=== PATIENT | female | born 1955 | race Caucasian/White ===

== ENCOUNTER 2017-08-12 09:22 | Day surgery (SDC) | payer OTHER ==
[~2017-08-12] VITALS: Ht 177.8 cm; Wt 63.7 kg
[~2017-08-12 09:22] MED LIST: AMLO5 PO; ASPI81EC PO; HYDCHL25 PO; LOSA25 PO; LOSA50 PO; MULTI VITAMIN1 EACH PO; MULVITA PO; OMEGA-3 PO; SIMV10 PO; TRAZ100 PO; [UNRECOGNIZED DRUG - OTHER] PO
== END 2017-08-12 11:35 | disposition home or self-care (01) ==
LOC: ORSCSDS 09:22
PROVIDERS: Internal Medicine Gastroenterology
PROC: 0DBM8ZX Excision of Descending Colon, Via Natural or Artificial Opening Endoscopic, Diagnostic (ICD-10-PCS; principal; 2017-08-12 10:45)
PROC: 0DBH8ZX Excision of Cecum, Via Natural or Artificial Opening Endoscopic, Diagnostic (ICD-10-PCS; principal; 2017-08-12 10:45)
PROC: 0DBN8ZX Excision of Sigmoid Colon, Via Natural or Artificial Opening Endoscopic, Diagnostic (ICD-10-PCS; principal; 2017-08-12 10:45)
DX: Z12.11 Encounter for screening for malignant neoplasm of colon (principal); D12.0 Benign neoplasm of cecum; D12.4 Benign neoplasm of descending colon; K63.5 Polyp of colon; K57.30 Diverticulosis of large intestine without perforation or abscess without bleeding; Z86.010 Personal history of colon polyps; Z80.0 Family history of malignant neoplasm of digestive organs; I10 Essential (primary) hypertension; E78.5 Hyperlipidemia, unspecified; Z79.899 Other long term (current) drug therapy
CPT/HCPCS: J1980

== ENCOUNTER 2020-08-22 11:55 | Day surgery (SDC) | payer OTHER ==
[~2020-08-22] VITALS: Ht 175.3 cm; Wt 64.5 kg
[~2020-08-22 11:55] MED LIST changes: +METO50ER PO; +OLME20 PO; +ZOCOR20 MG PO
[2020-08-22] MEDS ORDERED: Vitamin D2000 UNIT (12:27)
--- NOTE | 2020-08-22 12:36 | NUR ---
08/22/20 1236 Lourdes Anderson FIRST ATTEMPT MISSED BY MAXI IN THE RIGHT HAND. SECOND ATTEMPT SUCCESFUL IN THE RAC BY RN. PT TOW.
== END 2020-08-22 14:42 | disposition home or self-care (01) ==
LOC: ORSCSDS 11:55
PROVIDERS: Internal Medicine Gastroenterology
PROC: 0DBN8ZX Excision of Sigmoid Colon, Via Natural or Artificial Opening Endoscopic, Diagnostic (ICD-10-PCS; principal; 2020-08-22 13:15)
PROC: 0DB78ZX Excision of Stomach, Pylorus, Via Natural or Artificial Opening Endoscopic, Diagnostic (ICD-10-PCS; principal; 2020-08-22 13:15)
DX: Z12.11 Encounter for screening for malignant neoplasm of colon (principal); Z86.010 Personal history of colon polyps; K63.5 Polyp of colon; Z80.0 Family history of malignant neoplasm of digestive organs; Z79.899 Other long term (current) drug therapy; K57.30 Diverticulosis of large intestine without perforation or abscess without bleeding; Z15.09 Genetic susceptibility to other malignant neoplasm; K57.10 Diverticulosis of small intestine without perforation or abscess without bleeding; I10 Essential (primary) hypertension
CPT/HCPCS: 88305; J2704; J7040; J7120